=== PATIENT | female | born 1975 | race Caucasian/White ===

== ENCOUNTER 2018-05-06 15:58 | Emergency (ER) | payer OTHER ==
[~2018-05-06] VITALS: Ht 162.6 cm; Wt 57.1 kg
[2018-05-06] MEDS ORDERED: PROBIOTIC1 EAC2 PO (16:13)
[2018-05-06] MEDS ORDERED: ALDACTONE50 MG PO (16:13)
[2018-05-06] MEDS ORDERED: PRILOSEC2.5 MG PO (16:14)
[2018-05-06 17:19] VITALS: BP 130/70
== END 2018-05-06 17:15 | disposition home or self-care (01) ==
LOC: M.ERS 15:58
DX: S61.412A Laceration without foreign body of left hand, initial encounter (principal); Z90.49 Acquired absence of other specified parts of digestive tract; W26.0XXA Contact with knife, initial encounter; Y93.89 Activity, other specified; Y92.89 Other specified places as the place of occurrence of the external cause; Y99.8 Other external cause status